=== PATIENT | female | born 1945 | race Caucasian/White ===

== ENCOUNTER 2020-02-06 06:42 | Observation (INO) ==
[~2020-02-06 06:42] MED LIST: BUPIVACAINE HCL/EPINEPHRINE/PF 30 ML VIAL IJ PRN; RINGER'S SOLUTION,LACTATED 1,000 ML IV PRN; ceFAZolin SODIUM 1 GM VIAL IV PRN
[2020-02-06] MEDS ORDERED: BUPIVACAINE HCL/EPINEPHRINE/PF 30 ML VIAL IJ ONE (07:07)
[2020-02-06] MEDS ORDERED: HEPARIN SOD.,PORCINE 100 UNITS/ML ONE (07:07)
[2020-02-06] MEDS ORDERED: ceFAZolin SODIUM 1 GM VIAL ONE (07:24)
--- NOTE | 2020-02-06 07:25 | ANES ---
Anesthesia Pre Procedure Eval Vitals/Labs: Last Vital Signs Temp 37 C 02/06/20 06:56 Pulse 92 02/06/20 06:56 Resp 24 H 02/06/20 06:56 BP 157/72 H 02/06/20 06:56 Pulse Ox 95 02/06/20 06:56 HOME MEDICATIONS NK 12/20/19 [Last Taken Unknown] Allergies/Adverse Reactions: Allergies Allergy/AdvReac Type Severity Reaction Status Date / Time No Known Allergies Allergy Verified 01/29/20 09:46 - Planned Procedure Planned Procedure: Portacath Insertion Medication List Reviewed:: Yes Allergies Verified: Yes Medical History (Last Reviewed 02/06/20 @ 07:22 by Papo Olivera CRNA) Lymphoma Onset Date: 12/07/19 Ganglion Onset Date: 08/11/17 right wrist Localized superficial swelling, mass, or lump Onset Date: 04/26/13 left forearm-possible foreign body Surgical History (Last Reviewed 02/06/20 @ 07:22 by Papo Olviera CRNA) History of breast biopsy Onset Date: 11/24/19 ultrasound guided left breast bx-tissue core of lymphoid cells. History of breast lump/mass excision Onset Date: 12/07/19 Tricia-left [id number] B-cell lymphoma. History of tooth extraction Onset Date: Unknown History of tubal ligation Onset Date: 1978 Family History (Last Reviewed 02/06/20 @ 07:22 by Papo Olivera CRNA) Mother , age 90, natural causes No problems noted. Father , age 60's-unknown cause. No problems noted. Sister , age 50's-uterine ca Cancer uterine ca-unknown age of dx Brother Alive and well Sister , unknown age or diagnosis Medical history unknown Brother , 1 w/Alzheimer's 1 w/diabetes No problems noted. Son , age 46-unknown cause Bipolar disorder - Family Anesthesia History Family History:: no untoward family reactions to anesthesia, no familial bleeding tendencies, no family history of clotting disorders, no family history of premature - Airway/Neck/Teeth Within Normal Limits:: Yes Teeth Condition: intact Neck Exam: full range of motion Mallampatti Score: 2 Thyromental (T-M) distance: > 6 cm Mandibulo Hyoid distance: > 3 cm - Respiratory Respiratory Physical: lungs clear, decreased breath sounds Smoking Status: Current every day smoker - one ppd Discussed smoking cessation including day of surgery: Yes - last 499 Sleep Apnea currently treated: No Sleep Apnea by current assessment: No - Cardiovascular Tolerate Activity: Fair Heart Sounds: S1 & S2, Regular - Gastrointestinal NPO since: 2399 - Anesthesia Assessment and Plan ASA Class: PS, II Anesthesia Type Plan: MAC
[2020-02-06] MEDS ORDERED: PROPOFOL VIAL IV ONE (07:31)
[2020-02-06] MEDS ORDERED: LIDOCAINE HCL 50 ML VIAL ONE (07:31)
[2020-02-06] MEDS ORDERED: BUPIVACAINE HCL/PF 30 ML VIAL IJ ONE (08:18)
[2020-02-06] MEDS ORDERED: HEPARIN SOD.,PORCINE 100 UNITS/ML IV ONE (08:20)
[2020-02-06] MEDS ORDERED: oxyCODONE HCL/ACETAMINOPHEN 1 TAB TABLET PO PRN (09:25)
--- NOTE | 2020-02-06 09:39 | ANES ---
Post Anesthesia Discharge - Transfer of Care Transfer of Care handoff given to nurse: Yes - Discharge from PACU Discharge from PACU when meets criteria: Yes - Alert, back sore in 116.
--- NOTE | 2020-02-06 09:56 | ANES ---
Post Anesthesia Assessment - Vital Signs Vitals: Last Vital Signs Temp 36.3 C 02/06/20 09:48 Pulse 66 02/06/20 09:48 Resp 18 02/06/20 09:48 BP 104/63 02/06/20 09:48 Pulse Ox 97 02/06/20 09:48 Airway Patency: Normal - Mental Status Level Of Consciousness: Awake, Alert - Pain Level Pain Score: 0 - N/V Assessment Nausea/Vomiting Presence: None Dehydration:: No
[2020-02-06] MEDS ORDERED: HYDROmorphone HCL 1 MG/ML DISP.SYRIN IV PRN (11:40)
--- NOTE | 2020-02-06 12:04 | OR ---
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 FINDINGS: Successful port position. Small pneumothorax after procedure NARRATIVE OF PROCEDURE: The patient was identified preoperatively and prior to the administration of anesthetic a multidisciplinary timeout was observed. With the patient supine with a rolled towel between the shoulders intravenous sedation was administered. Intravenous Ancef was administered. The patient's neck and upper chest was prepped with Betadine solution and a generous operating field outlined with sterile towels. The remainder the patient was covered with a sterile disposable drape. A point was chosen under the left clavicle for insertion. The skin, subcutaneous tissue, and periosteum were anesthetized with 0.5% Marcaine. The same needle was used to access the vein. Next a larger insertion needle was passed. Although the vein was entered, there was questionable air noted as well. A guidewire was threaded into the vein followed by a peel-away dilator/introducer. Flushed port tubing was then placed under fluoroscopic guidance in the superior vena cava. The tubing was clamped and laid aside. The projected pocket area in the left upper chest was infiltrated with 0.5% Marcaine with epinephrine. Transverse skin incision was made and dissection was carried through subcutaneous tissue until the pectoralis fascia was encountered. A pocket was then created by blunt dissection. The tubing was then passed to the port pocket using a tunneling device, trimmed, and connected to the previously flushed port. The port was then secured in the pocket with interrupted sutures. The port was flushed again with heparin. After receiving a correct sponge needle and instrument count attention was turned to closing the wound. Subcutaneous tissue was approximated with interrupted sutures of 3-0 chromic. The skin incisions were approximated with subcuticular sutures of 4-0 Vicryl. The operative sites were washed and dried. Dressings of Dermabond and a Mepilex border were applied. The patient tolerated the procedure well. Her SaO2 remained normal throughout. There was no measurable blood loss. She was transferred to the recovery room for a chest x-ray. This demonstrated good port position however a small left pneumothorax. I discussed the situation with the patient and explained that a small chest tube will need to be placed to reinflate the left lung. Informed consent was obtained and she will be returned to the OR for that procedure. Reviewed and electronically signed
--- NOTE | 2020-02-06 12:07 | OR ---
Operative Report - Dictated Report Narrative: OPERATIVE REPORT DATE OF OPERATION: 02/06/2020 PREOPERATIVE DIAGNOSIS: Left pneumothorax POSTOPERATIVE DIAGNOSIS: Same OPERATION: Insertion left chest tube SURGEON: Karmen Nieves MD ANESTHESIA: MAC/local Papo Olivera CRNA INDICATIONS FOR PROCEDURE: The patient is a 74-year-old female who had placement of a left subclavian vein buried infusion port for chemotherapy for lymphoma. She developed a small postprocedural pneumothorax and is brought for placement of a chest tube. FINDINGS: Successful left chest tube insertion NARRATIVE OF PROCEDURE: The patient was identified preoperatively and prior to the administration of anesthetic a multidisciplinary timeout was observed. With the patient in the supine position the left chest was prepped with chlorhexidine and the axillary area was isolated with 4 sterile towels. The remainder the patient was covered with sterile towels. A point was chosen for tube insertion in the anterior axillary line. The skin, subcutaneous tissue, and periosteum of the chosen rib were infiltrated with 0.5% Marcaine with epinephrine. A small skin incision was made. Next using a Thal-Quick over the wire kit the left chest was accessed with a needle. A guidewire was placed followed by dilators and then an 18 Georgian chest tube. This was connected to underwater seal with good titling and evidence of air escape. The tube was then secured to the chest wall with interrupted 0 silk sutures. A dressing of 4 x 4's and Medipore tape was applied. The patient tolerated the procedure well. There was no measurable blood loss. She was transferred to the floor awake in stable condition. Chest x-ray demonstrates successful left tube placement. The patient will be placed in observation overnight with trial clamping in the morning depending upon progress. Reviewed and electronically signed
[2020-02-06] MEDS: oxyCODONE HCL/ACETAMINOPHEN 1 TAB TABLET PO PRN ×2 (15:49→20:38)
[2020-02-07] MEDS: ACETAMINOPHEN 325 MG TABLET PO PRN ×2 (01:23→11:54)
--- NOTE | 2020-02-07 10:18 | PN ---
Dictated Progress Note - Date and Time Seen: Date: 02/07/20 Time: 09:00 - Progress Note Narrative: Vital Signs - Last Taken Temp 36.4 C 02/07/20 09:53 Pulse 73 02/07/20 09:53 Resp 24 H 02/07/20 09:53 BP 144/61 02/07/20 09:53 Pulse Ox 100 02/07/20 09:53 Her vital signs have remained normal. Her back pain has resolved. Her only discomfort currently is at the chest tube insertion site. She has had no shortness of breath. Chest x-ray this morning shows decrease in the size of the pneumothorax. There is no obvious air leak clinically. Will trial clamp the chest tube and obtain a serial chest x-ray at about 1 PM. Possible tube removal and discharge later today if no reaccumulation Addendum: Stable small apical pneumothorax with no change with clamping. Plan: Will remove tube and discharge home
--- NOTE | 2020-02-07 14:11 | DS ---
Date of Discharge:: 02/07/20 Hospital Course: Chest tube placed. VS remained stable and size of pneumothorax decreased. Tube was clamped with no evidence of ongoing leak. Tube removed and dressing placed---leave 48hrs and then change daily Port site clean, new mepilex placed---may leave open tomorrow. Has instruction book on port and appointment in [place] for chemo. Has numbers to call for questions or concerns. OTC tylenol for pain Will see back in office in 1 week Procedures Performed: see notes below - placement of left subclavian vein buried infusion port. Insertion left chest tube Discharge Location: Home Disposition: Home self-care Condition: Good Discharge Activity: Activity as tolerated Discharge Diet: General/regular food Referrals: Melinda Flores DO [Primary Care Provider] - Problem Oriented Discharge Instructions to Patient/Family: Pneumothorax Complete Home Medications List: Complete Home Medication List: NK 12/20/19
[2020-02-07 14:41] VITALS: BP 129/62
== END 2020-02-07 14:50 | disposition home or self-care (01) ==
LOC: MS 06:42 → SUR 06:42
PROVIDERS: ADMIT Surgery; ATTEND Surgery
DX: Y92.530 Ambulatory surgery center as the place of occurrence of the external cause; F17.210 Nicotine dependence, cigarettes, uncomplicated; Y71.1 Therapeutic (nonsurgical) and rehabilitative cardiovascular devices associated with adverse incidents; Y83.8 Other surgical procedures as the cause of abnormal reaction of the patient, or of later complication, without mention of misadventure at the time of the procedure; C85.90 Non-Hodgkin lymphoma, unspecified, unspecified site; J95.811 Postprocedural pneumothorax
CPT/HCPCS: 71010; 71045; C1788; G0378